=== PATIENT | male | born 1940 | race African-American/Black ===

== ENCOUNTER 2017-12-11 19:06 | Emergency (ER) | payer OTHER, MEDICAID ==
[~2017-12-11] VITALS: Ht 182.9 cm; Wt 86.2 kg
[2017-12-11] MEDS ORDERED: SODIUM CHLORIDE 0.9% 1,000 ML IV ONE (19:58)
[2017-12-11 20:18] LABS: BASOPHILS % 1.2 % (0.0-2.0); EOSINOPHILS % 2.3 % (0.0-5.0); HEMATOCRIT. 37.8 % (42.0-52.0); HEMOGLOBIN. 12.8 g/dL (14.0-18.0); LYMPHOCYTES % 27.9 % (20.0-50.0); MEAN CORPUSCULAR HEMOGLOBIN 29.8 pg (28.0-32.0); MEAN CORPUSCULAR VOLUME 88.5 fL (80.0-94.0); MEAN PLATELET VOLUME 8.4 fl (7.4-10.4); MONOCYTES % 12.7 % (2.0-8.0); NEUTROPHILS % 55.9 % (40.0-76.0); PLATELET 254 x1000/uL (130-400); RED BLOOD CELL COUNT 4.28 mill/uL (4.7-6.1); RED CELL DISTRIBUTION WIDTH 14.4 % (11.6-14.6)
[2017-12-11 20:22] LABS: CHLORIDE 101 mEq/L (98-107)
[2017-12-11 20:23] LABS: INR 1.1
[2017-12-11 20:55] LABS: CLARITY URINE CLEAR (CLEAR); COLOR URINE DARK YELLOW (YELLOW); KETONES URINE TRACE (NEGATIVE); LEUKOCYTE ESTERASE URINE NEGATIVE (NEGATIVE); NITRITE URINE NEGATIVE (NEGATIVE); OCCULT BLOOD URINE NEGATIVE (NEGATIVE); PROTEIN URINE 1+ (NEGATIVE); SPECIFIC GRAVITY URINE 1.024 (1.005-1.030)
[2017-12-12] MEDS ORDERED: POTASSIUM CHLORIDE 20MEQ TABLET SR PO NR (00:15)
[2017-12-12 03:08] VITALS: BP 170/84
== END 2017-12-12 03:30 | disposition home or self-care (01) ==
LOC: ER 19:06
DX: R42 Dizziness and giddiness (principal); N28.9 Disorder of kidney and ureter, unspecified; I10 Essential (primary) hypertension; H26.9 Unspecified cataract; Z87.891 Personal history of nicotine dependence
CPT/HCPCS: 36415; 70450; 71045; 80053; 81003; 83880; 84484; 85025; 85610; 93005; 96360; 96361; 99285; J7030

== ENCOUNTER 2019-02-08 19:43 | Inpatient (IN) | payer MEDICARE, MEDICAID ==
[~2019-02-08] VITALS: Ht 182.9 cm; Wt 77.1 kg
[2019-02-08] MEDS ORDERED: SODIUM CHLORIDE 0.9% 1,000 ML IV ONE (23:15)
[2019-02-08 23:42] LABS: BASOPHILS % 1.1 % (0.0-2.0); EOSINOPHILS % 3.7 % (0.0-5.0); HEMATOCRIT. 34.2 % (42.0-52.0); HEMOGLOBIN. 11.6 g/dL (14.0-18.0); LYMPHOCYTES % 30.3 % (20.0-50.0); MEAN CORPUSCULAR HEMOGLOBIN 29.8 pg (28.0-32.0); MEAN CORPUSCULAR VOLUME 87.9 fL (80.0-94.0); MEAN PLATELET VOLUME 8.2 fl (7.4-10.4); MONOCYTES % 11.1 % (2.0-8.0); NEUTROPHILS % 53.8 % (40.0-76.0); PLATELET 213 x1000/uL (130-400); RED CELL DISTRIBUTION WIDTH 14.4 % (11.6-14.6)
[2019-02-08 23:44] LABS: CHLORIDE 104 mEq/L (98-107)
[2019-02-09] MEDS ORDERED: POTASSIUM CHLORIDE 20MEQ TABLET SR PO ONE (07:30)
[2019-02-09] MEDS ORDERED: KCL 20MEQ/100ML PREMIX 100 ML IV ONE (07:30)
[2019-02-09 07:37] LABS: CLARITY URINE CLEAR (CLEAR); COLOR URINE YELLOW (YELLOW); KETONES URINE NEGATIVE (NEGATIVE); LEUKOCYTE ESTERASE URINE NEGATIVE (NEGATIVE); NITRITE URINE NEGATIVE (NEGATIVE); OCCULT BLOOD URINE 1+ (NEGATIVE); PROTEIN URINE NEGATIVE (NEGATIVE); SPECIFIC GRAVITY URINE 1.006 (1.005-1.030); UROBILINOGEN URINE 0.2 E.U./dL (0.2-1.0)
[2019-02-09 07:50] LABS: *BARBITURATES SCREEN URINE NEGATIVE (NEGATIVE)
[2019-02-09 07:51] LABS: *BENZODIAZEPINES SCREEN URINE NEGATIVE (NEGATIVE); *COCAINE SCREEN URINE NEGATIVE (NEGATIVE); CANNABINOID URINE SCREEN NEGATIVE (NEGATIVE); METHADONE URINE SCREEN NEGATIVE (NEGATIVE); OPIATES URINE SCREEN NEGATIVE (NEGATIVE); PHENCYCLIDINE URINE SCREEN NEGATIVE (NEGATIVE)
[2019-02-09 07:52] LABS: *AMPHETAMINES SCREEN URINE NEGATIVE (NEGATIVE)
[2019-02-09] MEDS ORDERED: AMLODIPINE 10MG TABLET PO SCH (09:00)
[2019-02-09] MEDS ORDERED: DOCUSATE SODIUM 100MG CAPSULE PO PRN (09:00)
[2019-02-09] MEDS ORDERED: TRAMADOL 50MG TABLET PO PRN (09:00)
[2019-02-09] MEDS ORDERED: ACETAMINOPHEN 325MG TABLET PO PRN (09:00)
[2019-02-09] MEDS ORDERED: MAGNESIUM/ALUMINUM HYDROXIDE/SIMETHICONE 30ML UDC PO PRN (09:00)
[2019-02-09] MEDS ORDERED: NITROGLYCERIN 0.4MG TABLET SL SL PRN (09:00)
[2019-02-09] MEDS ORDERED: ONDANSETRON HCL 4MG/2ML INJ IV PRN (09:00)
[2019-02-09] MEDS ORDERED: IPRATROPIUM/ALBUTEROL 0.5-3(2.5)MG/3ML NEB HHN PRN (09:00)
[2019-02-09] MEDS ORDERED: GUAIFENESIN 200MG/10ML SUGAR FREE UDC PO PRN (09:00)
[2019-02-09] MEDS ORDERED: ENOXAPARIN 40MG/0.4ML SYR SUBCUT SCH (09:00)
[2019-02-09] MEDS ORDERED: FAMOTIDINE 20MG TABLET PO SCH (09:00)
[2019-02-09 10:00] VITALS: BP 151/79
[2019-02-09] MEDS ORDERED: POTASSIUM CHLORIDE 20MEQ TABLET SR PO SCH (11:00)
[2019-02-09] MEDS ORDERED: KCL 20MEQ/100ML PREMIX 100 ML IV SCH (11:00)
[2019-02-09 11:11] VITALS: BP 151/79
[2019-02-09] MEDS: ENOXAPARIN 40MG/0.4ML SYR SUBCUT SCH (11:46)
[2019-02-09] MEDS: AMLODIPINE 10MG TABLET PO SCH (11:47)
[2019-02-09 12:00] VITALS: BP 160/71
[2019-02-09] MEDS: FAMOTIDINE 20MG TABLET PO SCH (14:03)
[2019-02-09] MEDS ORDERED: NIFE90TA2 PO (14:37)
[2019-02-09] MEDS ORDERED: LISI-604 MT (14:37)
[2019-02-09 16:00] VITALS: BP 131/63
[2019-02-09 18:09] LABS: TOTAL IRON BINDING CAPACITY 248 ug/dL (250-450)
[2019-02-09 18:13] LABS: CREATINE KINASE MB FRACTION 12.3 ng/mL (0.5-3.6)
[2019-02-09 18:23] LABS: CREATINE KINASE 1085 IU/L (39-308)
[2019-02-09 18:24] LABS: FOLIC ACID (FOLATE) SERUM 10.8 ng/mL (>5.38)
[2019-02-09] MEDS ORDERED: ZOLPIDEM TARTRATE 5MG TABLET PO PRN (21:00)
[2019-02-10 00:48] LABS: CREATINE KINASE 881 IU/L (39-308)
[2019-02-10 00:52] LABS: CREATINE KINASE MB FRACTION 8.9 ng/mL (0.5-3.6)
[2019-02-10 08:00] VITALS: BP 151/71
[2019-02-10] MEDS: FAMOTIDINE 20MG TABLET PO SCH (08:56)
[2019-02-10] MEDS: AMLODIPINE 10MG TABLET PO SCH (08:56)
[2019-02-10] MEDS: ENOXAPARIN 40MG/0.4ML SYR SUBCUT SCH (08:58)
[2019-02-10 12:00] VITALS: BP 117/65
[2019-02-10 12:50] LABS: BASOPHILS % 1.1 % (0.0-2.0); EOSINOPHILS % 3.4 % (0.0-5.0); HEMATOCRIT. 34.2 % (42.0-52.0); HEMOGLOBIN. 11.6 g/dL (14.0-18.0); LYMPHOCYTES % 24.3 % (20.0-50.0); MEAN CORPUSCULAR HEMOGLOBIN 30.1 pg (28.0-32.0); MEAN CORPUSCULAR VOLUME 88.6 fL (80.0-94.0); MEAN PLATELET VOLUME 8.6 fl (7.4-10.4); NEUTROPHILS % 58.2 % (40.0-76.0); PLATELET 228 x1000/uL (130-400); RED BLOOD CELL COUNT 3.86 mill/uL (4.7-6.1); RED CELL DISTRIBUTION WIDTH 14.1 % (11.6-14.6)
[2019-02-10 12:57] LABS: CHLORIDE 104 mEq/L (98-107)
[2019-02-10 16:00] VITALS: BP 119/65
[2019-02-10 20:00] VITALS: BP 161/84
[2019-02-10] MEDS: CLONIDINE 0.1MG TABLET PO PRN (21:38)
[2019-02-11] VITALS: BP 138/71
[2019-02-11 04:00] VITALS: BP 162/73
[2019-02-11 08:00] VITALS: BP 153/70
[2019-02-11] MEDS: AMLODIPINE 10MG TABLET PO SCH (09:02)
[2019-02-11] MEDS: FAMOTIDINE 20MG TABLET PO SCH (09:02)
[2019-02-11] MEDS: ENOXAPARIN 40MG/0.4ML SYR SUBCUT SCH (09:03)
[2019-02-11 12:00] VITALS: BP 110/68
[2019-02-11 13:16] LABS: CHLORIDE 102 mEq/L (98-107)
[2019-02-11 16:20] VITALS: BP 119/80
[2019-02-11] MEDS: CYANOCOBALAMIN 1000MCG/ML VIAL IM SCH (18:01)
[2019-02-11] MEDS: CLONIDINE 0.1MG TABLET PO PRN (20:15)
[2019-02-12 08:00] VITALS: BP 140/72
[2019-02-12] MEDS: CYANOCOBALAMIN 1000MCG/ML VIAL IM SCH (10:26)
[2019-02-12] MEDS: FAMOTIDINE 20MG TABLET PO SCH (10:27)
[2019-02-12] MEDS: AMLODIPINE 10MG TABLET PO SCH (10:27)
[2019-02-12] MEDS: ENOXAPARIN 40MG/0.4ML SYR SUBCUT SCH (10:28)
[2019-02-12 12:00] VITALS: BP 130/70
[2019-02-12 16:00] VITALS: BP 149/75
[2019-02-12 18:34] VITALS: BP 141/76
[2019-02-24] MEDS ORDERED: CYANOCOBALAMIN 1000MCG/ML VIAL IM SCH (09:00)
== END 2019-02-12 20:09 | disposition home health service (06) | DRG 551 ==
LOC: ER 22:02 → 7WST 02-09 03:18 → ENRESERV 02-09 07:18 → SUPCPDRO 02-09 07:28
PROVIDERS: ADMIT Internal Medicine; ATTEND Internal Medicine
DX: M48.061 Spinal stenosis, lumbar region without neurogenic claudication (principal); N17.0 Acute kidney failure with tubular necrosis; M62.82 Rhabdomyolysis; D64.9 Anemia, unspecified; E87.6 Hypokalemia; M43.16 Spondylolisthesis, lumbar region; D63.1 Anemia in chronic kidney disease; R26.9 Unspecified abnormalities of gait and mobility; R74.0 Nonspecific elevation of levels of transaminase and lactic acid dehydrogenase [LDH]; E66.9 Obesity, unspecified; E87.5 Hyperkalemia; I12.9 Hypertensive chronic kidney disease with stage 1 through stage 4 chronic kidney disease, or unspecified chronic kidney disease; M47.816 Spondylosis without myelopathy or radiculopathy, lumbar region; N18.9 Chronic kidney disease, unspecified; Z82.49 Family history of ischemic heart disease and other diseases of the circulatory system; Z87.891 Personal history of nicotine dependence
CPT/HCPCS: 36415; 70551; 71045; 72148; 76770; 80048; 80305; 81003; 82550; 82553; 82607; 82746; 83540; 83550; 83605; 83880; 84145; 84484; 93005; 93306; 93970; 97116; 97162; 97166; 97530; 99285; C1893; J1650; J3420; J3480; J7030; J7040

== ENCOUNTER 2019-03-21 08:17 | Emergency (ER) | payer MEDICARE, MEDICAID ==
[~2019-03-21] VITALS: Ht 177.8 cm; Wt 77.0 kg
[~2019-03-21 08:17] MED LIST: NIFE90TA2 PO
[2019-03-21 08:48] VITALS: BP 160/82
== END 2019-03-21 10:20 | disposition home or self-care (01) ==
LOC: ER 08:17
DX: K40.90 Unilateral inguinal hernia, without obstruction or gangrene, not specified as recurrent (principal); I11.9 Hypertensive heart disease without heart failure; N28.9 Disorder of kidney and ureter, unspecified; K59.00 Constipation, unspecified; Z87.440 Personal history of urinary (tract) infections; Z87.09 Personal history of other diseases of the respiratory system
CPT/HCPCS: 99283